=== PATIENT | female | born 1990 | race Caucasian/White ===

== ENCOUNTER → 2016-07-25 | Outpatient (CLI) | payer OTHER ==
--- NOTE | 2016-07-25 10:15 | US ---
EXAMINATION TYPE: US abdomen complete DATE OF EXAM: 07/25/2016 10:00 AM COMPARISON: NONE CLINICAL HISTORY: R10.9 Abd Pain. rt upper abd pain, tenderness EXAM MEASUREMENTS: Liver Length: 14.1 cm Gallbladder Wall: 0.2 cm CBD: 0.4 cm Spleen: 12.1 cm Right Kidney: 9.7 x 4.0 x 5.6 cm Left Kidney: 9.8 x 5.6 x 5.8 cm Findings: Pancreas: wnl Liver: wnl Gallbladder: wnl Evidence for sonographic Trammell's sign: tenderness all over CBD: wnl Spleen: wnl Right Kidney: wnl Left Kidney: wnl Upper IVC: wnl Abd Aorta: wnl The liver is homogenous. The intrahepatic portion of the IVC and proximal abdominal aorta are within normal limits. There is no evidence of cholelithiasis. Common bile duct is unremarkable. The visu alized portions of the pancreas are homogenous. The spleen is unremarkable. Kidneys are symmetric a nd free of hydronephrosis. No renal lesions are seen. IMPRESSION: No significant abnormality appreciated.
== END | disposition home or self-care (01) ==
LOC: RADUSWWP 09:42
PROVIDERS: ATTEND Family Medicine
DX: R10.9 Unspecified abdominal pain (principal)
CPT/HCPCS: 76700

== ENCOUNTER → 2017-02-18 | Outpatient (CLI) | payer OTHER ==
--- NOTE | 2017-02-18 11:19 | US ---
EXAMINATION TYPE: US abdomen complete DATE OF EXAM: 02/18/2017 COMPARISON: US 2017 CLINICAL HISTORY: R10.11 RUQ pain. Intermittent abdomen pain and occasional nausea x 1 year EXAM MEASUREMENTS: Liver Length: 15.1 cm Gallbladder Wall: 0.2 cm CBD: 0.5 cm Spleen: 11.3 cm Right Kidney: 10.2 x 4.3 x 5.3 cm Left Kidney: 10.0 x 5.7 x 5.1 cm Pancreas: visualized portions wnl, head and tail limited by overlying midline bowel gas Liver: wnl, scanned intercostally, limited by rib shadowing Gallbladder: wnl Evidence for sonographic Trammell's sign: no CBD: wnl Spleen: visualized portions wnl, limited by rib shadowing and overlying bowel gas Right Kidney: wnl Left Kidney: visualized portions wnl, limited by rib shadowing and overlying bowel gas Upper IVC: wnl Abd Aorta: wnl IMPRESSION: 1. Visualized portions of the abdomen ultrasound are unremarkable.
== END ==
LOC: RADUSWWP 08:54
PROVIDERS: ATTEND Family Medicine
DX: R10.11 Right upper quadrant pain (principal)
CPT/HCPCS: 76700

== ENCOUNTER → 2017-03-05 | Outpatient (CLI) | payer OTHER ==
--- NOTE | 2017-03-05 14:44 | CT ---
EXAMINATION TYPE: CT abdomen pelvis w con DATE OF EXAM: 03/05/2017 HISTORY: RLQ pain X [address] DLP: 726.8mGycm Automated Exposure Control for Dose Reduction was Utilized. CONTRAST: CT scan of the abdomen and pelvis is performed with IV Contrast, patient injected with 100 mL of Omni paque 300. COMPARISON: None. FINDINGS: LUNG BASES: Tiny to small pericardial effusion is incidentally noted. LIVER/GB: No significant abnormality is appreciated. PANCREAS: No significant abnormality is seen. SPLEEN: No significant abnormality is seen. ADRENALS: No significant abnormality is seen. KIDNEYS: No significant abnormality is seen. BOWEL: Appendix is unremarkable extending centrally from cecum seen best coronal image 33. There is n o suspicious small or large bowel dilatation. There is mild wall thickening in the sigmoid colon pres ent. A mild colitis is not excluded. UTERUS/ADNEXA: Uterus is anteverted in shape and heterogeneous in appearance. Small amount of free fl uid in left pelvis is noted on axial image 64 left ovary is seen near axial image 67, right ovary is seen near axial image 65, scattered small follicles are felt present bilaterally. In the left ovary t here is 1.5 cm rim hyperdense lesion suspicious for corpus luteal cyst possibly from recent lobulatio n. Correlate clinically. Few scattered pelvic phleboliths are seen. LYMPH NODES: No greater than 1cm abdominal or pelvic lymph nodes are appreciated. OSSEOUS STRUCTURES: No significant abnormality is seen. OTHER: No significant additional abnormality is seen. IMPRESSION: Possible mild sigmoid colitis, clinical correlation advised. Appendix is within normal li mits.
== END | disposition home or self-care (01) ==
LOC: RADCTMAIN 11:20
PROVIDERS: ATTEND Family Medicine
DX: R10.11 Right upper quadrant pain (principal)
CPT/HCPCS: 74177; Q9967

== ENCOUNTER → 2019-07-13 | Outpatient (CLI) | payer OTHER ==
--- NOTE | 2019-07-13 14:13 | US ---
EXAMINATION TYPE: US pelvic complete DATE OF EXAM: 07/13/2019 COMPARISON: None CLINICAL HISTORY: 29-year-old female Z97.5 IUD placement. IUD placement/ pt states having abnormal va ginal bleeding and pain since IUD placed 1 1/2 months ago TECHNIQUE: Transabdominal sonographic images of the pelvis were acquired. FINDINGS: Date of LMP: pt states approx 3 weeks ago EXAM MEASUREMENTS: Uterus: 10.8 x 4.9 x 6.6 cm Endometrial Stripe: 0.8 cm Right Ovary: 3.5 x 2.5x 2.8 cm Left Ovary: 3.0 x 1.9 x 2.7 cm 1. Uterus: Anteverted. Heterogeneous myometrium, IUD visualized and appears in correct position 2. Endometrium: wnl for pt's cycle 3. Right Ovary: wnl 4. Left Ovary: wnl 5. Bilateral Adnexa: wnl 6. Posterior cul-de-sac: wnl IMPRESSION: 1. IUD appears abruptly situated within the uterine cavity. 2. Normal follicular change in the ovaries. 3. No pelvic free fluid.
== END | disposition home or self-care (01) ==
LOC: RADUSWWP 12:12
PROVIDERS: ATTEND Obstetrics & Gynecology
DX: Z48.89 Encounter for other specified surgical aftercare (principal); Z97.5 Presence of (intrauterine) contraceptive device
CPT/HCPCS: 76856

== ENCOUNTER 2024-04-03 05:50 | Inpatient (IN) | payer BC, OTHER ==
--- NOTE | 2024-04-02 11:38 | P.HPOB ---
History of Present Illness H&P Date: 04/02/24 Chief Complaint: 17 week demise this is a 33 yo that presented to the office this week for routine 17 week OB check. I was unable to get FHTs via doppler and US was preformed. Us revealing a 17 week demise no heart tones are appreciated. she has a prior h/o 2 vaginal deliveries Review of Systems Constitutional: Denies chills, Denies fatigue, Denies fever Ears, nose, mouth and throat: Denies headache Cardiovascular: Denies leg edema Respiratory: Denies dyspnea Gastrointestinal: Denies nausea, Denies vomiting Genitourinary: Reports Exam Osteopathic Statement: *. No significant issues noted on an osteopathic structural exam other than those noted in the History and Physical/Consult. in general this is a well nourished well developed female in NAD breathing is non labored abdomen is gravid, cervical exam is deferred - OBG Physical Exam Abdomen: gravid Assessment and Plan (1) 17 weeks gestation of Status: Acute Code(s): Z3A.17 - 17 WEEKS GESTATION OF SNOMED Code(s): 44639605 (2) demise Status: Acute Code(s): KKN2145 - SNOMED Code(s): 399300599 Plan: 33 yo at 17 weeks with missed Ab, no heart tones noted on US this week at routine PNV. plan cytotec 400mg po initially, if no progress will increase to 600mg 4 hours after initial dose. nubain vs epidural per patient choice for pain control.
[~2024-04-03 05:50] MED LIST: TRANEXAMIC 1,000 MG/100ML-NACL 1,000 MG in EMPTY BAG 1 BAG IV PRN
[2024-04-03] MEDS ORDERED: NALBUPHINE 10 MG/ML (10 ML MDV) IV PRN (06:00)
[2024-04-03 06:16] VITALS: RESP 16
[2024-04-03] MEDS: LACTATED RINGERS 1,000 ML IV SCH (06:18)
[2024-04-03 06:26] LABS: HCT 43.8 % (34.0-46.0); HGB 15.4 gm/dL (11.4-16.0); MCH 32.3 pg (25.0-35.0); MCHC 35.2 g/dL (31.0-37.0); MCV 91.9 fL (80.0-100.0); Mean Platelet Volume 10.3; Platelet Count 185 k/uL (150-450); RBC 4.77 m/uL (3.80-5.40); RDW 13.3 % (11.5-15.5); WBC 10.1 k/uL (3.8-10.6)
[2024-04-03] MEDS: miSOPROStoL 200 MCG TAB PO STA (06:39)
[2024-04-03 08:25] LABS: INR 0.9 (<1.2); Partial Thromboplastin Time 23.6 sec (22.0-30.0)
[2024-04-03] MEDS: miSOPROStoL 200 MCG TAB PO SCH ×2 (11:22→15:25)
[2024-04-03] MEDS: LOPERAMIDE 2 MG CAP PO STA (19:35)
[2024-04-03] MEDS ORDERED: BENZOCAINE/MENTHOL SPRAY 1 GM/SPRAY AEROSOL TOPICAL PRN (22:13)
[2024-04-03] MEDS ORDERED: diphenhydrAMINE 25 MG CAP PO PRN (22:13)
[2024-04-03] MEDS ORDERED: diphenhydrAMINE 50 MG CAP PO PRN (22:13)
[2024-04-03] MEDS ORDERED: ZOLPIDEM 5 MG TAB PO PRN (22:13)
[2024-04-03] MEDS ORDERED: SIMETHICONE 80 MG CHEWABLE PO PRN (22:13)
[2024-04-03] MEDS ORDERED: diphenhydrAMINE 50 MG/ML 1 ML VIAL IVP PRN ×2 (22:13)
[2024-04-03] MEDS ORDERED: LANOLIN CREAM 1 GM TUBE TOPICAL PRN (22:13)
[2024-04-03] MEDS ORDERED: HYDROCORTISONE 2.5% RECTAL CREAM 30 GM TUBE RECTAL PRN (22:13)
--- NOTE | 2024-04-03 22:13 | P.PROBDLV ---
Vaginal Delivery Note - . Vaginal Delivery Note: 33-year-old G3, P2 at approximately 17 weeks of that presents for induction of labor secondary to demise. Patient was seen in the office this week, no heart tones were appreciated on ultrasound. Patient elected induction of labor. Patient was admitted today and Cytotec induction of labor was begun. Patient progressed through induction without complaints, patient did note increased vaginal pressure, she began pushing and fetus was delivered i ntact, umbilical cord was clamped and cut. Placenta remains currently. On exam placenta is palpated at the cervical os. No vaginal lacerations are appreciated.
[2024-04-03] MEDS: IBUPROFEN IV 800 MG in SODIUM CHLORIDE 0.9% 250 ML IV ONE (22:49)
[2024-04-04] MEDS ORDERED: PROPOFOL 10 MG/ML 20 ML VIAL IV ONE (03:07)
[2024-04-04] MEDS ORDERED: LIDOCAINE 1% INJ 10MG/ML (20 ML MDV) ONE (03:07)
--- NOTE | 2024-04-04 03:48 | P.OP ---
Date of Procedure: 04/04/24 Preoperative Diagnosis: Retained placenta Postoperative Diagnosis: Same Procedure(s) Performed: Dilation and curettage Anesthesia: MAC Surgeon: Elsie Braun Estimated Blood Loss (ml): 10 IV fluids (ml): 700 Urine output (ml): 50 Pathology: other (Placenta) Condition: stable Disposition: observation Indications for Procedure: 17-week demise delivered at 2151, noted bleeding but no delivery of placenta by 3 AM, discussion about retained placenta and need for dilation curettage with patient and patient's significant other. Informed consent was obtained. Anesthesia was notified. Operative Findings: Adherent placenta was appreciated, sharp curettage was used to clear the uterus of placental/membranous tissue Description of Procedure: Patient was taken back to the operating room where anesthesia was obtained without difficulty by the anesthesia department. She was prepped and draped in the normal sterile fashion in the dorsolithotomy position. A red rubber c atheter was used to drain the bladder of clear urine, a weighted speculum is placed in the posterior vaginal vault. The cervix was noted to be grossly dilated to approximately 4 to 5 cm the placenta was noted at the cervical os the placenta was removed in fragments via a ring forcep, sharp curettage was performed to remove the remaining placental/membranous tissue. Several passes with the sharp curette were used to clear the uterus of placental tissue. With the final pass of the curette no further tissue was appreciated the cervix was noted to be intact and hemostatic. All instruments were removed from the patient's vaginal vault. Patient tolerated procedure well and was taken back to her labor and delivery suite.
[2024-04-04] MEDS: ACETAMINOPHEN TAB 500 MG TAB PO SCH (06:30)
[2024-04-04] MEDS: IBUPROFEN 800 MG TAB PO SCH (06:30)
[2024-04-04 08:14] VITALS: BP 109/73; PULSE 86; TEMP 99.3
[2024-04-04] MEDS: SENNOSIDES-DOCUSATE SODIUM 1 EACH TAB PO SCH (09:20)
--- NOTE | 2024-04-08 16:07 | CDI ---
Documentation Clarification Form Date: 04/08/2024 04:02:28 PM From: Nikki Roblero Phone: Admit Date: 04/03/2024 05:50:00 AM Patient Name: Shanna Reeder Visit Number: [id number] Discharge Date: 04/04/2024 08:22:00 AM ATTENTION: The Clinical Documentation Specialists (CDI) and [facility] Coding Staff appreciate your assistance in clarifying documentation. Please respond to the clarification below the line at the bottom and electronically sign. The CDI & [facility] Coding staff will review the response and follow-up if needed. Please note: Queries are made part of the Legal Health Record. If you have any questions, please contact the author of this message via ITS. Doctor/Provider: Elsie Braun The final diagnosis of the pathology report states chronicdeciduitispresent. Coding guidelines do not allow coding professionals to code based on pathology results; therefore, clarification is requested. History/risk factors: 33 yo presented to the office for [id number] weekOB check. Unable toget FHTs viaDopplerand US was performed revealing a17 weekdemise no heart tones are appreciated. Clinical Indicators: demise Treatment: Cytotecinduction of labor with later D&C Please clarify if you agree with the pathology report diagnosis of chronicdeciduitispresent: [ x ] Yes [ ] No [ ] Other (please specify) [ ] Unable to determine (Template Last Revised: July 2020) MTDD
--- NOTE | 2024-04-09 07:52 | P.DS ---
Providers Date of admission: 04/03/24 05:50 Expected date of discharge: 06/04/23 Attending physician: Elise Braun Primary care physician: Stated None - Discharge Diagnosis(es) (1) 17 weeks gestation of Status: Acute (2) demise Status: Acute Hospital Course: 33-year-old at 17+ weeks that presented to labor and delivery for induction of labor secondary to demise. Patient was seen in the office no heart tones were appreciated via Doppler ultrasound confirmation of demise. Patient was admitted and Cytotec induction of labor was begun. Patient progressed through the day after multiple doses of Cytotec and delivered a nonviable fetus, after multiple hours and no delivery of the placenta patient was counseled on need for dilation and curettage. Patient was taken back to the operating room where dilation curettage was performed, placenta was noted to be quite adherent at the time of D&C. Patient was feeling well later that morning, and did request discharge home. Bleeding was noted to be minimal at that time, she denied pain. Patient Condition at Discharge: Good Plan - Discharge Summary Follow up Appointment(s)/Referral(s): Elsie Braun DO [Doctor of Osteopathic Medicine] - 2 Weeks Patient Instructions/Handouts: Vaginal Delivery (DC), Vaginal Delivery (GEN) Activity/Diet/Wound Care/Special Instructions: Pvuk-agj-vxfvcur ibuprofen 600 mg 3 tablets every 6 hours as needed for pain. No tub baths or intercourse until 6 weeks Discharge Disposition: HOME SELF-CARE
== END 2024-04-04 08:22 | disposition home or self-care (01) | DRG 770 ==
LOC: 4FBP 05:50
PROVIDERS: ADMIT Obstetrics & Gynecology Obstetrics; ATTEND Obstetrics & Gynecology Obstetrics
PROC: 3E033VJ Introduction of Other Hormone into Peripheral Vein, Percutaneous Approach (ICD-10-PCS; 2024-04-03)
PROC: 10E0XZZ Delivery of Products of Conception, External Approach (ICD-10-PCS; 2024-04-03)
PROC: 10D17ZZ Extraction of Products of Conception, Retained, Via Natural or Artificial Opening (ICD-10-PCS; principal; 2024-04-04 03:00)
DX: O02.1 Missed abortion (principal); O41.1420 Placentitis, second trimester, not applicable or unspecified; O03.4 Incomplete spontaneous abortion without complication; Z3A.17 17 weeks gestation of pregnancy
CPT/HCPCS: 85027; 85610; 85730; 86850; 86900; 86901; 88300; 88305